=== PATIENT | male | born 1965 | race Caucasian/White ===

== ENCOUNTER 2017-10-08 18:44 | Emergency (ER) | payer BC ==
--- NOTE | 2017-10-08 19:29 | EDPHY ---
H & P Smoking Status: Never smoked Time Seen by Provider: 10/08/17 19:12 HPI/ROS: CHIEF COMPLAINT: Left calf pain while playing racquetball HISTORY OF PRESENT ILLNESS: 52-year-old male arrives via private vehicle complaining of acute left calf pain which occurred when he was playing racquetball. Describes the pain as mid calf and notes a new deformity to the muscle. Unable to dorsiflex or plantar flex secondary to pain. No direct trauma or fall. No paresthesia foot PHYSICAL EXAM (Prior to examination, patient consented to physical exam, hands were washed and my usual and customary physical exam procedures followed) 1) GENERAL: Well-developed, well-nourished, alert and oriented. Appears uncomfortable in his asked to move. 2) HEAD: Normocephalic 3) HEENT: Pupils equal, round, reactive to light bilaterally. 4) LUNGS: Breathing comfortably. 5) MUSCULOSKELETAL: proximal tibia and fibula nontender . A divot deformity noted in the left mid calf area. Normal Achilles landmarks in place. 5th MT nontender negative Unger test, compartments soft 6) SKIN: Intact 7) VASCULAR: DP,PT pulses and cap refill present and brisk DIFFERENTIAL DIAGNOSIS: in no particular order including but not limited to fracture, sprain, compartment syndrome Procedure: Crutches indications for crutch use discussed with patient. Patient fitted for crutches by ER staff. Observed ambulating with crutches. I think the patient has the capacity to safely use crutches. Usual and customary crutch walking precautions provided Procedure: Splint A [place] boot splint was applied by ER clock repair technician. After application of the splint I returned and re-examined the patient. The splint was adequately immobilizing the joint and distal to the splint the patient's circulation and sensation were intact. Patient shows no signs of compartment syndrome. Was given orthopedic precautions. (Víctor Painter) Constitutional: Initial Vital Signs Temperature (C) 36.5 C 10/08/17 18:45 Heart Rate 78 10/08/17 18:45 Respiratory Rate 18 10/08/17 18:45 Blood Pressure 132/93 H 03/05/18 18:45 O2 Sat (%) 98 10/08/17 18:45 O2 Delivery Mode Room Air Allergies/Adverse Reactions: No Known Allergies Allergy (Unverified 10/08/17 18:51) Home Medications: Medication Instructions Recorded Hydrocodone/APAP 5/325 [[place] 1 tab PO Q6 PRN #10 tab 10/08/17 5/325 (RX)] MDM/Departure - MDM Imaging: I viewed and interpreted images myself - [facility] Imaging Results: Imaging Impressions Tibia/Fibula X-Ray 10/08/17 19:18 Impression: Negative. No acute fracture. Medications Given: Discontinued Medications Oxycodone/Acetaminophen (Percocet 5/325) 1 tab PO EDNOW ONE Stop: 10/08/17 19:41 Last Admin: 10/08/17 19:44 Dose: 1 tab ED Course/Re-evaluation: The patient was re-evaluated with serial exams in remains with soft compartments. Most recent exam at 7:41 p.m.: Doubt DVT. Doubt compartment syndrome. We discussed more than likely acute muscular rupture. Doubt Achilles tendon rupture. He has been splinted. He would like to follow up with Dr. Mesfin Tavarez. Informed that he may necessitate outpatient MRI I do not think this needs to occur emergently. He is agreeable with this. Given analgesia and usual customary orthopedic precautions and instructions. Care of patient under supervision of secondary supervising physician Dr Cabrera . (Víctor Painter) The patient was evaluated and managed by the Physician Devulcanizer Loader. My co- signature indicates that I have reviewed this chart and I agree with the findings and plan of care as documented. I am the secondary supervising physician. (Serina Cabrera) - Depart Disposition: Home, Routine, Self-Care Clinical Impression: Pain of left calf Condition: Good Instructions: Hydrocodone/Acetaminophen (By mouth), Muscle Strain (ED) Additional Instructions: Return to the ER immediately if you experience discoloration, have worsening pain, numbness, tingling, or any other symptoms that concern you. If you received x-rays in the emergency department today, be advised, that ligamentous , tendon, muscular, and other non-bony injury cannot be fully ruled out. Try to keep your affected extremity elevated above the level of your chest, and keep cold packs on the affected area, for the next 48 hours. Prescriptions: Hydrocodone/APAP 5/325 [[place] 5/325 (RX)] 1 tab PO Q6 PRN #10 tab PRN Reason: Pain, Severe Referrals: Selina Tavarez MD [Medical Doctor] - 2-3 days, call for appt.
[2017-10-08] MEDS ORDERED: OXYCODONE/APAP 5/325 TAB PO ONE (19:40)
[2017-10-08 19:59] VITALS: BP 132/76; PULSE 74; RESP 16; TEMP 97.9; O2SAT 96
== END 2017-10-08 20:00 | disposition home or self-care (01) ==
DX: M79.605 Pain in left leg (principal)
CPT/HCPCS: L4386